=== PATIENT | female | born 1990 | race Caucasian/White ===

== ENCOUNTER 2025-08-16 19:00 | Inpatient (IN) | payer BC ==
[2025-08-16] MEDS ORDERED: Ibuprofen 800 MG TAB PO PRN (21:36)
[2025-08-16] MEDS ORDERED: Acetaminophen 500 MG TAB PO PRN (21:36)
[2025-08-16] MEDS ORDERED: Diphenoxylate HCl/Atropine Tablet PO PRN (21:36)
[2025-08-16] MEDS ORDERED: Lidocaine 1% (PF) 30 ML VIAL SC PRN (21:36)
[2025-08-16] MEDS ORDERED: Tranexamic Acid 1,000 MG/10 ML VIAL IVP PRN (21:36)
[2025-08-16] MEDS ORDERED: Carboprost 250 MCG/ML AMP IM PRN (21:36)
[2025-08-16] MEDS ORDERED: Methylergonovine 0.2 MG/ML VIAL IM PRN (21:36)
[2025-08-16] MEDS ORDERED: hydrALAZINE 20 MG/ML VIAL SLOW IVP PRN (21:36)
[2025-08-16 21:38] VITALS: BMI 26.3
[2025-08-16] MEDS ORDERED: Oxytocin 30 units/NS 500 ML 500 ML IV SCH (21:45)
[2025-08-16 22:18] LABS: Hematocrit 31.1 % (34.9-44.5); Hemoglobin 10.6 g/dL (12.0-15.5); Mean Corpuscular Hemoglobin 30.6 pg (27.0-33.0); Mean Corpuscular Volume 89.9 fL (81.6-98.3); Platelet Count 173 10x3/uL (150-450); Red Blood Cell (RBC) Count 3.46 10x6/uL (3.90-5.03); White Blood Cell (WBC) Count 8.20 10x3/uL (3.5-10.5)
[2025-08-16 22:45] LABS: Glucose 136 mg/dL (70-105)
[2025-08-16 22:54] LABS: Hep B Surf Ag - L&D Non-Reactive S/CO (NonReactive)
[2025-08-16 22:55] LABS: Syphilis Antibody Index 0.05 S/CO (<1.00 Non-Reactive)
[2025-08-16] MEDS: Oxytocin 30 units/NS 500 ML 500 ML IV SCH (23:32)
[2025-08-17] MEDS: fentaNYL/Ropivacaine Epidural 100 ML ONE (03:09)
[2025-08-17] MEDS ORDERED: Communication Order-Pharmacy FS SCH (03:30)
[2025-08-17] MEDS ORDERED: Acetaminophen 325 MG TAB PO PRN (03:30)
[2025-08-17] MEDS ORDERED: diphenhydrAMINE 50 MG/ML VIAL IVP PRN (03:30)
[2025-08-17] MEDS ORDERED: fentaNYL 2 mcg/Ropivacaine 0.2% Epidural 100 ML CADD EPIDURAL SCH (03:30)
[2025-08-17] MEDS ORDERED: Ondansetron PF 4 MG/2 ML Vial IVP PRN ×2 (03:30→12:01)
[2025-08-17] MEDS: Ondansetron PF 4 MG/2 ML Vial IVP PRN (05:09)
[2025-08-17 07:25] LABS: HIV (1/2) Antibody/Antigen Non-Reactive (NonReactive); HIV 1/2 INDEX 0.10 S/CO (<1.00)
[2025-08-17] MEDS ORDERED: hydrALAZINE 20 MG/ML VIAL SLOW IVP PRN (12:01)
[2025-08-17] MEDS ORDERED: Benzocaine-Menthol 82.5 ML CAN TOP PRN (12:01)
[2025-08-17] MEDS ORDERED: Milk Of Magnesia 30 ML UDCUP PO PRN (12:01)
[2025-08-17] MEDS ORDERED: Preparation H Ointment 28 GM TUBE PR PRN (12:01)
[2025-08-17] MEDS ORDERED: Methylergonovine 0.2 MG/ML VIAL IM PRN (12:01)
[2025-08-17] MEDS ORDERED: Bisacodyl 10 MG SUPP PR PRN (12:01)
[2025-08-17] MEDS ORDERED: Oxytocin 30 units/NS 500 ML 500 ML IV SCH (12:01)
[2025-08-17] MEDS ORDERED: diphenhydrAMINE 25 MG CAP PO PRN (12:01)
[2025-08-17] MEDS ORDERED: Lanolin Ointment 7 GM TUBE TOP PRN (12:01)
[2025-08-17] MEDS: Ibuprofen 800 MG TAB PO SCH (15:07)
[2025-08-18 07:48] VITALS: BP 121/57; TEMP 98.2
== END 2025-08-18 13:25 | disposition home or self-care (01) | DRG 806 ==
LOC: CSHLD 20:43 → CSHPED 08-17 12:10
PROVIDERS: ADMIT Family Medicine; ATTEND Family Medicine
PROC: 4A1HXCZ Monitoring of Products of Conception, Cardiac Rate, External Approach (ICD-10-PCS; 2025-08-16)
PROC: 10E0XZZ Delivery of Products of Conception, External Approach (ICD-10-PCS; principal; 2025-08-17)
PROC: 10907ZC Drainage of Amniotic Fluid, Therapeutic from Products of Conception, Via Natural or Artificial Opening (ICD-10-PCS; 2025-08-17)
PROC: 10H07YZ Insertion of Other Device into Products of Conception, Via Natural or Artificial Opening (ICD-10-PCS; 2025-08-17)
DX: O36.5930 Maternal care for other known or suspected poor fetal growth, third trimester, not applicable or unspecified (principal); O44.43 Low lying placenta NOS or without hemorrhage, third trimester; Z37.0 Single live birth; O99.354 Diseases of the nervous system complicating childbirth; G43.109 Migraine with aura, not intractable, without status migrainosus; O24.424 Gestational diabetes mellitus in childbirth, insulin controlled; O99.334 Smoking (tobacco) complicating childbirth; F17.200 Nicotine dependence, unspecified, uncomplicated; O76 Abnormality in fetal heart rate and rhythm complicating labor and delivery; O69.81X0 Labor and delivery complicated by cord around neck, without compression, not applicable or unspecified; Z3A.37 37 weeks gestation of pregnancy; Z98.82 Breast implant status; Z90.49 Acquired absence of other specified parts of digestive tract; Z88.8 Allergy status to other drugs, medicaments and biological substances; Z91.040 Latex allergy status
CPT/HCPCS: 36416; 51702; 82947; 85027; 86780; 86850; 86900; 86901; 87340; 87389; J2405; J2590